=== PATIENT | female | born 1975 | race Caucasian/White ===

== ENCOUNTER 2020-08-17 14:08 | Outpatient (CLI) | payer OTHER ==
--- NOTE | 2020-08-17 16:17 | ULT ---
TRANSABDOMINAL AND TRANSVAGINAL PELVIC ULTRASOUND: 08/17/20 INDICATION: Pelvic pain and amenorrhea. TECHNIQUE: Morin scale, color, spectral Doppler images were obtained of the pelvis using transabdominal and trans vaginal approach. FINDINGS: The uterus measured 11.4 x 3.4 x 5.9 cm. There is a 3.6 cm fibroid within the anterior uterine body. An additional 1.1 cm anterior uterine body fibroid is present. The right ovary measures 3.3 x 1.9 x 2.8 cm. Left ovary measures 3.0 x 1.0 x 2.5 cm. There is normal flow to both ovaries. There is a Nabothian cyst seen within the anterior aspect of the cervix measuri ng 1.3 cm. No free fluid is evident. IMPRESSION: 1. Fibroid uterus. 2. Nabothian cyst. 3. No additional sonographic abnormality. POS: [facility]
== END 2020-08-17 14:09 | disposition home or self-care (01) ==
LOC: SCSULT 14:08
DX: R10.2 Pelvic and perineal pain (principal); D25.9 Leiomyoma of uterus, unspecified; N88.8 Other specified noninflammatory disorders of cervix uteri
CPT/HCPCS: 76856